=== PATIENT | female | born 1965 | race Caucasian/White ===

== ENCOUNTER → 2020-05-07 07:17 | Outpatient (CLI) | payer MEDICAID ==
[2015-12-14 09:00] VITALS: BMI 26.6
[~2020-05-07 07:17] MED LIST: ALBUTEROL0.63 MG/3 INH; ASMANEX0.24 GM; SUMATRIPTAN SUC25 MG PO; ZEBETA5 MG PO
== END | disposition home or self-care (01) ==
LOC: D.NM 07:17
PROVIDERS: ATTEND Internal Medicine Gastroenterology
DX: R10.13 Epigastric pain (principal)

== ENCOUNTER 2020-06-25 05:25 | Day surgery (SDC) | payer MEDICAID ==
[~2020-06-25] VITALS: Ht 162.6 cm; Wt 69.9 kg
--- NOTE | ~2020-06-25 | OP ---
PATIENT NAME: ABEBE GOLDBERG MEDICAL RECORD: [id number] :65 LOCATION:[facility] ADMISSION DATE: SURGEON: HERBERTH WINTERS MD DATE OF OPERATION: 06/25/2020 PREOPERATIVE DIAGNOSES: 1. Biliary dyskinesia. 2. Ventral hernia. 3. Hypertension. 4. Gastroesophageal reflux disease. 5. Asthma. POSTOPERATIVE DIAGNOSES: 1. Biliary dyskinesia. 2. Ventral hernia. 3. Hypertension. 4. Gastroesophageal reflux disease. 5. Asthma. PROCEDURE: 1. Laparoscopic cholecystectomy. 2. Ventral hernia repair. SURGEON: Herberth Winters MD REPORT OF PROCEDURE: The patient's abdomen was prepped and draped in sterile fashion. A semicircular incision was made on the inferior aspect of the umbilicus. Electrocautery was used to dissect through the subcutaneous tissue. There was a hernia defect present near the base of the umbilicus. We came through this hernia sac and was able to see there was some fatty tissue extending through the hernia. The hernia defect was around a cm in greatest diameter. We placed 0 Vicryls on the edges of the fascial defect and bluntly entered the abdominal cavity. A 12-mm Michael port was then inserted. After insufflation was obtained, then 5-mm trocars were placed in the epigastrium and 2 more were placed in the right subcostal region. The gallbladder was grasped and elevated. There were no signs of any inflammatory changes. The cystic artery and cystic duct were dissected free and these were clipped proximally and distally and ligated in standard fashion. The gallbladder was taken off the liver bed using electrocautery and placed into an Endo Catch bag. We irrigated out the right upper quadrant and any bleeding from the liver bed was treated with electrocautery. At this point, the ports and insufflation were then remained and the gallbladder was taken out through the umbilicus. The fascial defect near the umbilicus was reapproximated with interrupted 0 Vicryls times 4. The umbilicus was then tacked down to the fascia using a single interrupted 3-0 Vicryl and the subcutaneous tissues were reapproximated with interrupted 3-0 Vicryl. A total of 10 mL of 0.25% Marcaine with epinephrine was infused into the surrounding tissues and the skin incisions were all closed with subcutaneous 5-0 Monocryl. COMPLICATIONS: None. CONDITION: Stable. ANESTHESIA: General endotracheal and local. OPERATIVE REPORT [id number] ABEBE GOLDBERG BLOOD LOSS: Minimal. TRANSINT:[id number] Voice Confirmation ID: [id number] DOCUMENT ID: [id number] HERBERTH WINTERS MD CC: SAVANNAH LEBLANC MD [id number] DICTATION DATE: 06/25/20 0843 CAR DELIVERER: 06/25/20 1106 [facility] [address] [place] [address]
[~2020-06-25 05:25] MED LIST changes: +AMBIEN10 MG PO; +CARAFATE1 G PO; +ESGIC TABLET1 TAB; +OMEPRAZOLE20 M1 PO
[2020-06-25 05:55] LABS: BASOPHILS 0.7 % (0-2); EOSINOPHILS 3.5 % (0-7); HEMATOCRIT 39.3 % (36.0-48.0); HEMOGLOBIN 13.6 g/dL (12-16); IMMATURE GRANULOCYTES 0.2 % (0-5); LYMPHOCYTES 38.2 % (15-50); MCH 30.8 pg (26.0-34.0); MCHC 34.6 g/dL (31.0-37.0); MCV 89.1 fL (80.0-100.0); MEAN PLATELET VOLUME 9.8 fL (7.4-10.4); MONOCYTES 10.7 % (2-11); NEUTROPHILS 46.7 % (40-80); RBC 4.41 10x6/uL (4.00-5.40); RDW 12.6 % (11.5-14.5); WBC 4.3 10x3/uL (4.8-10.8)
[2020-06-25 05:58] LABS: PLATELET COUNT 160 10x3/uL (130-400)
[2020-06-25] MEDS ORDERED: BUTALB-APAP-CA1 EACH PO (06:05)
[2020-06-25] MEDS ORDERED: ZIAC 5-6.25 MG1 TAB PO (06:05)
[2020-06-25] MEDS ORDERED: ESTRACE1 MG PO (06:06)
[2020-06-25] MEDS ORDERED: CARAFATE1 G PO (06:06)
[2020-06-25] MEDS ORDERED: OMEPRAZOLE20 M1 PO (06:06)
[2020-06-25] MEDS ORDERED: AMBIEN10 MG PO (06:07)
[2020-06-25 06:16] LABS: ANION GAP 7.7 mmol/L (8-16); CALCIUM 8.8 mg/dL (8.5-10.1); CARBON DIOXIDE 31.4 mmol/L (21.0-32.0); CREATININE - SERUM 0.9 mg/dL (0.6-1.3); POTASSIUM - SERUM 3.1 mmol/L (3.5-5.1)
[2020-06-25 06:17] VITALS: BP 138/72; Ht 162.6 cm; Wt 69.9 kg
[2020-06-25] MEDS ORDERED: HYDROCODON-ACE1 EA10 PO (08:39)
--- NOTE | 2020-06-25 19:10 | NUR ---
1020 PT DROWSY ON NC 2LITER. AT BEDSIDE. IVF BOLUS GIVEN. 1120 PT GIVEN ICE CREAM. AND ICE PACK TO ABDOMEN. B/P LOW, PT STATED SHE DIDNT SLEEP ALL NIGHT. PT HAS SLEEP APNEA WITH CPAP. 1330 PT RECIEVED A D5W 500 BOLUS. VOMITED 300 ML OF EMESIS IN BAG AND SITTING ON SIDE OF BED.
--- NOTE | 2020-06-25 19:20 | NUR ---
1234 MEDICATED WITH PHENERGAN IV 5MG WITH GOOD RESULTS PT BACK ON NC O2 4LITER. SEDATED. ARROUSES TO PHYSICAL STIMULI. 1550 IV REMOVED AND INSTRUCTION GIVEN.
== END 2020-06-25 15:55 | disposition home or self-care (01) ==
LOC: D.PAN 05:25
PROVIDERS: ATTEND Surgery
DX: K82.8 Other specified diseases of gallbladder (principal); K43.9 Ventral hernia without obstruction or gangrene; I10 Essential (primary) hypertension; K21.9 Gastro-esophageal reflux disease without esophagitis; J45.909 Unspecified asthma, uncomplicated

== ENCOUNTER → 2021-03-09 06:55 | Outpatient (CLI) | payer BC ==
[2020-06-25 06:17] VITALS: BMI 26.5
[~2021-03-09 06:55] MED LIST changes: +BUTALB-APAP-CA1 EACH PO; +ESTRACE1 MG PO; +HYDROCODON-ACE1 EA10 PO; +ZIAC 5-6.25 MG1 TAB PO
[2021-03-09 07:50] LABS: ALBUMIN 3.6 g/dL (3.4-5.0); BILIRUBIN - DIRECT 0.1 mg/dL (0.00-0.30); BILIRUBIN - INDIRECT 0.33 mg/dL (0.00-1.00); BILIRUBIN - TOTAL 0.43 mg/dL (0.2-1.3); PROTEIN - SERUM 6.8 g/dL (6.4-8.2)
== END | disposition home or self-care (01) ==
LOC: D.US 06:55
PROVIDERS: ATTEND Internal Medicine Gastroenterology
DX: K76.0 Fatty (change of) liver, not elsewhere classified (principal)